=== PATIENT | male | born 1970 | race Caucasian/White ===

== ENCOUNTER → 2017-07-02 | Emergency (ER) | payer MEDICAID ==
[~2017-07-02] VITALS: Ht 177.8 cm; Wt 72.3 kg
[~2017-07-02] MED LIST: IBUP-1984 PO; POLOS OP; TRAM50TA2 PO
[2017-07-02 10:00] VITALS: BP 134/75
== END | disposition home or self-care (01) ==
LOC: ER 08:33
DX: J04.0 Acute laryngitis (principal); J45.909 Unspecified asthma, uncomplicated; K21.9 Gastro-esophageal reflux disease without esophagitis; G89.29 Other chronic pain; F12.10 Cannabis abuse, uncomplicated; Z79.899 Other long term (current) drug therapy
CPT/HCPCS: 87081; 87880; 99284

== ENCOUNTER 2018-04-17 09:06 | Emergency (ER) | payer MEDICAID ==
[~2018-04-17] VITALS: Ht 180.3 cm; Wt 73.6 kg
[2018-04-17 09:15] VITALS: BP 143/69
[2018-04-17] MEDS ORDERED: DOXY100C2 PO (09:25)
== END 2018-04-17 09:50 | disposition home or self-care (01) ==
LOC: ER 09:06
DX: L08.9 Local infection of the skin and subcutaneous tissue, unspecified (principal); L53.8 Other specified erythematous conditions; J45.909 Unspecified asthma, uncomplicated; K21.9 Gastro-esophageal reflux disease without esophagitis; F12.90 Cannabis use, unspecified, uncomplicated; Z91.010 Allergy to peanuts; Z91.018 Allergy to other foods
CPT/HCPCS: 99283

== ENCOUNTER 2020-09-21 12:23 | Emergency (ER) | payer MEDICAID ==
[~2020-09-21] VITALS: Ht 177.8 cm; Wt 72.3 kg
[2020-09-21 12:37] VITALS: BP 128/78
[2020-09-21] MEDS ORDERED: ketorolac trometh inj. 60 MG/2 ML VIAL IM ONE (13:25)
[2020-09-21] MEDS ORDERED: ketorolac trometh. 30mg/ml inj. IM ONE (13:30)
[2020-09-21] MEDS ORDERED: ACETAMINOPHEN PO (13:45)
[2020-09-21] MEDS ORDERED: IBUP-1986 PO (13:45)
== END 2020-09-21 13:54 | disposition home or self-care (01) ==
LOC: ER 12:24
DX: M54.41 Lumbago with sciatica, right side (principal); J45.909 Unspecified asthma, uncomplicated; K21.9 Gastro-esophageal reflux disease without esophagitis; G89.29 Other chronic pain; F12.90 Cannabis use, unspecified, uncomplicated; Z72.89 Other problems related to lifestyle; Z98.890 Other specified postprocedural states; Z91.010 Allergy to peanuts; Z91.018 Allergy to other foods; Z79.899 Other long term (current) drug therapy
CPT/HCPCS: 96372; 99283; J1885

== ENCOUNTER 2021-12-29 09:30 | Emergency (ER) | payer MEDICAID ==
[~2021-12-29] VITALS: Ht 177.8 cm; Wt 70.0 kg
[~2021-12-29 09:30] MED LIST changes: +ACETAMINOPHEN PO; +IBUP-1986 PO
[2021-12-29] MEDS ORDERED: normal saline 1000ML IV soln IVB ONE (09:50)
[2021-12-29] MEDS ORDERED: ondansetron/PF 4mg/2ml inj IV ONE (09:50)
[2021-12-29 10:00] LABS: BASOPHILS % (AUTO) 0.3 % (0-1); EOSINOPHILS % (AUTO) 0.1 % (0-6); HEMATOCRIT 38.7 % (42.0-52.0); HEMOGLOBIN 13.3 g/dl (14.0-17.9); LYMPHOCYTES # (AUTO) 1.7 X10'3 (1.1-4.8); LYMPHOCYTES % (AUTO) 10.4 % (21-51); MEAN CORPUSCULAR HEMOGLOBIN 31.7 PG (27.0-31.0); MEAN CORPUSCULAR HGB CONC 34.3 g/dL (33.0-36.5); MEAN CORPUSCULAR VOLUME 92.4 FL (78-98); MEAN PLATELET VOLUME 9.1 FL (7.4-10.4); MONOCYTES # (AUTO) 1.5 X10'3 (0-0.9); MONOCYTES % (AUTO) 9.2 % (2-12); NEUTROPHILS # (AUTO) 13.1 X10'3 (1.8-7.7); PLATELET COUNT 176 X10'3 (140-440); RED BLOOD COUNT 4.19 X10'6 (4.70-6.10); RED CELL DISTRIBUTION WIDTH 13.4 % (11.5-14.5); WHITE BLOOD COUNT 16.4 X10'3 (4.5-11.0)
[2021-12-29 10:13] LABS: ALANINE AMINOTRANSFERASE 19 U/L (12-78); ALBUMIN 3.4 G/DL (3.4-5.0); ALBUMIN/GLOBULIN RATIO 0.9 (1.1-1.5); ALKALINE PHOSPHATASE 40 IU/L (46-116); ANION GAP 9 (8-16); ASPARTATE AMINO TRANSFERASE 14 U/L (10-37); BILIRUBIN,TOTAL 0.3 MG/DL (0.1-1.0); BLOOD UREA NITROGEN 8 MG/DL (7-18); BUN/CREATININE RATIO 9.9 (5.4-32.0); CALCIUM 8.4 MG/DL (8.5-10.1); CHLORIDE 108 MMOL/L (99-107); CREATININE 0.81 MG/DL (0.60-1.10); GLUCOSE 103 MG/DL (70-104); POTASSIUM 3.9 MMOL/L (3.5-5.1); SODIUM 142 MMOL/L (135-145); TOTAL CARBON DIOXIDE 24.7 MMOL/L (24-32); TOTAL PROTEIN 7.2 G/DL (6.4-8.2); eGFR > 90 ML/MIN
[2021-12-29 10:16] LABS: LIPASE 53 U/L (73-393)
[2021-12-29] MEDS ORDERED: NIRM1TAB PO (13:04)
[2021-12-29] MEDS ORDERED: BUDE180A INH (13:04)
[2021-12-29] MEDS ORDERED: ONDA4TAB12 PO (13:04)
[2021-12-29] MEDS ORDERED: ALBU6.7H9 INH (13:04)
[2021-12-29 13:25] VITALS: BP 113/71
== END 2021-12-29 13:50 | disposition home or self-care (01) ==
LOC: ER 09:30
DX: U07.1 COVID-19 (principal); J45.909 Unspecified asthma, uncomplicated; K21.9 Gastro-esophageal reflux disease without esophagitis; G89.29 Other chronic pain; M54.50 Low back pain, unspecified; F12.90 Cannabis use, unspecified, uncomplicated; Z91.010 Allergy to peanuts; Z91.018 Allergy to other foods
CPT/HCPCS: 36415; 71045; 74176; 80053; 83690; 84484; 85025; 87635; 93005; 96374; 99285; C9803; J2405; J7030

== ENCOUNTER 2022-01-31 12:57 | Emergency (ER) | payer MEDICAID ==
[~2022-01-31] VITALS: Ht 177.8 cm; Wt 70.0 kg
[~2022-01-31 12:57] MED LIST changes: +ALBU6.7H9 INH; +BUDE180A INH; +NIRM1TAB PO; +ONDA4TAB12 PO
[2022-01-31 13:07] VITALS: BP 130/76
== END 2022-01-31 13:35 | disposition left against medical advice (07) ==
LOC: ER 12:57
DX: M79.673 Pain in unspecified foot (principal); Z53.21 Procedure and treatment not carried out due to patient leaving prior to being seen by health care provider